=== PATIENT | female | born 1930 | race Hispanic/Latino ===

== ENCOUNTER → 2018-01-31 | Outpatient (CLI) | payer OTHER | LOC: RAD 11:03 | PROVIDERS: ATTEND Family Medicine | DX: M17.0 Bilateral primary osteoarthritis of knee (principal) ==

== ENCOUNTER → 2018-10-31 | Outpatient (CLI) | payer MEDICARE, OTHER ==
[~2018-10-31] MED LIST: ACETAMINOPHEN325 M1 PO; CALTRATE-600 W1 EACH; FERROUS SULFAT325 MG; FUROSEMIDE40 MG/4 ML; K DUR10 MEQ; MELOXICAM15 MG; NEXIUM40 MG; OSTEO BI-FLEX1 EAC2; TRAZODONE HCL50 MG
--- NOTE | 2018-10-31 14:50 | Diagnostic Imaging Report ---
EXAMINATION: PA and lateral views of the chest. COMPARISON: None CLINICAL HISTORY: Dyspnea DISCUSSION: Lines/tubes: None. Lungs: Low lung volume with elevation of the right hemidiaphragm. Right lung base atelectasis. Pleura: No pleural effusion or pneumothorax. Heart and mediastinum: The cardiomediastinal silhouette is normal. Bones and soft tissues: No acute bony abnormalities. IMPRESSION: No acute cardiopulmonary abnormalities. Signed by: Dr. Jason Horner M.D. on 10/31/2018 2:46 PM
== END ==
LOC: RAD 13:12
PROVIDERS: ATTEND Family Medicine
DX: R06.00 Dyspnea, unspecified (principal); J84.10 Pulmonary fibrosis, unspecified
CPT/HCPCS: 71046

== ENCOUNTER 2018-11-03 10:08 | Inpatient (IN) | payer MEDICARE, OTHER ==
[~2018-11-03] VITALS: Ht 160 cm; Wt 65.0 kg
[2018-11-03] MEDS: ALBUTEROL SULF 0.083% NEB SOLN 3 ML NEB NEB SCH ×3 (00:11→19:46)
--- OUTSIDE RECORDS SUMMARY | 2018-11-03 10:11 | XMS REPORT ---
Author Author [facility] Address Unknown Phone Unavailable Care Team Providers Care Infant Toddler Lead Teacher Name Role Phone DOMINGUEZ REICH Unavailable Unavailable Problems This patient has no known problems. Allergies, Adverse Reactions, Alerts This patient has no known allergies or adverse reactions. Medications This patient has no known medications. Results Test Description Test Time Test Comments Text Results Atomic Results Result Comments CHEST 2 VIEWS 2018-10-31 14:45:00 [place] [address] Patient Name: ERICKSON GAITAN MR #: [id number] : 1930 Age/Sex: 88/F Req #: [id number] Adm Physician: Ordered by: DAMIR LAM, DOMINGUEZ Proctor MD Report #: [id number] Location: [facility] Room/Bed: Procedure: [id number] DX/CHEST 2 VIEWS Exam Date: Exam Time: REPORT STATUS: Signed EXAMINATION: PA and lateral views of the chest. COMPARISON: None CLINICAL HISTORY: Dyspnea DISCUSSION: Lines/tubes: None. Lungs: Low lung volume with elevation of the right hemidiaphragm. Right lung base atelectasis. Pleura: No pleural effusion or pneumothorax. Heart and mediastinum: The cardiomediastinal silhouette is normal. Bones and soft tissues: No acute bony abnormalities. IMPRESSION: No acute cardiopulmonary abnormalities. Signed by: Dr. Austin Rebolledo M.D. on 10/31/2018 2:46 PM Dictated By: AUSTIN REBOLLEDO MD [id number] Transcribed By: DEVONTE on 10/31/18 1446 COPY TO: DOMINGUEZ REICH KNEE THREE VIEWS BILATERAL 2018-02-04 11:21:00 [place] [address] Patient Name: ERICKSON GAITAN MR #: [id number] : 1930 Age/Sex: 87/F Req #: [id number] Adm Physician: Ordered by: DOMINGUEZ REICH MD, MD Report #: [id number] Location: [facility] Room/Bed: Procedure: [id number] DX/KNEE THREE VIEWS BILATERAL Exam Date: 01/31/18 Exam Time: 1115 REPORT STATUS: Signed PROCEDURE: KNEE THREE VIEWS BILATERAL COMPARISON: None. INDICATIONS: BILATERAL KNEE PAIN FINDINGS: Diffuse osteopenia: There are bilateral moderate medial compartment predominant, tricompartmental degenerative changes with joint space narrowing and bony osteophyte formation. No evidence of acute fracture or malalignment. No evidence of joint effusion. Atherosclerotic vascular calcifications. 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 Diffuse osteopenia without acute osseous abnormality. Dictated by: ANSHU RAMESH M.D. on 02/04/2018 at 11:21 Electronically approved by: ANSHU RAMESH M.D. on 02/04/2018 at 11:21 Dictated By: ANSHU RAMESH MD 1121 Transcribed By: LARRY on 02/04/18 1121 COPY TO: DOMINGUEZ REICH
[2018-11-03 12:09] LABS: BASOPHILS # (AUTO) 0.1 (0.0-0.1); BASOPHILS % 0.5 % (0.0-1.0); EOSINOPHILS # (AUTO) 1.2 (0.0-0.4); EOSINOPHILS % 10.4 % (0.0-6.0); HEMATOCRIT 32.7 % (34.2-44.1); HEMOGLOBIN 10.9 g/dL (12.0-16.0); LYMPHOCYTES # (AUTO) 3.2 (1.0-3.2); LYMPHOCYTES % 28.9 % (18.0-39.1); MEAN CORPUSCULAR HEMOGLOBIN 31.3 pg (28-32); MEAN CORPUSCULAR HGB CONC 33.3 g/dL (31-35); MONOCYTES # (AUTO) 1.1 (0.2-0.8); MONOCYTES % 9.6 % (4.4-11.3); NEUTROPHILS # (AUTO) 5.6 (2.1-6.9); NEUTROPHILS % 50.3 % (38.7-80.0); PLATELET COUNT 346 x10e3/uL (140-360); RED BLOOD COUNT 3.48 x10e6/uL (3.6-5.1); RED CELL DISTRIBUTION WIDTH 13.1 % (11.7-14.4)
[2018-11-03 12:17] LABS: BILIRUBIN,URINE NEGATIVE (NEGATIVE); CLARITY,URINE SL CLOUDY (CLEAR); COLOR,URINE YELLOW (YELLOW); KETONES,URINE NEGATIVE (NEGATIVE); LEUKOCYTE ESTERASE ,URINE NEGATIVE (NEGATIVE); NITRITE,URINE NEGATIVE (NEGATIVE); PROTEIN,URINE DIPSTICK TRACE (NEGATIVE); URINE UROBILINOGEN 0.2 mg/dL (0.2 - 1)
[2018-11-03 12:19] LABS: INR 1.11; PROTHROMBIN TIME 14.8 seconds (11.9-14.5)
[2018-11-03 12:20] LABS: PARTIAL THROMBOPLASTIN TIME 30.5 seconds (23.8-35.5)
[2018-11-03 12:27] LABS: ALANINE AMINOTRANSFERASE 12 IU/L (0-55); ALBUMIN 3.5 g/dL (3.5-5.0); ALKALINE PHOSPHATASE 80 IU/L (40-150); ANION GAP 12.7 mmol/L (8-16); BLOOD UREA NITROGEN 19 mg/dL (7-26); BUN/CREATININE RATIO 21 (6-25); CALCIUM 10.3 mg/dL (8.4-10.2); CARBON DIOXIDE 23 mmol/L (22-29); CHLORIDE 108 mmol/L (98-107); CREATINE KINASE 41 IU/L (29-168); CREATININE, SERUM 0.89 mg/dL (0.57-1.11); EST GLOMERULAR FILTRATION RATE 60 ML/MIN (60-); GLUCOSE 97 mg/dL (74-118); POTASSIUM 3.7 mmol/L (3.5-5.1); SODIUM 140 mmol/L (136-145)
[2018-11-03] MEDS ORDERED: METHYLPREDNISOLONE SOD SUCC 125 MG/2ML VIAL IV ONE (13:00)
[2018-11-03] MEDS ORDERED: ALBUTEROL/IPRATROPIUM 3 ML NEB NEB ONE (13:00)
[2018-11-03 13:02] LABS: BACTERIA,URINE FEW /HPF; EPITHELIAL CELLS,URINE RARE /LPF; RBC,URINE 0-5 /HPF (0-5); WBC,URINE (MAN) 0-5 /HPF (0-5)
--- NOTE | 2018-11-03 13:28 | Diagnostic Imaging Report ---
Chest, 2 views, 11/03/2018. History: Shortness of breath. Comparison: 10/31/2018. Findings: The cardiomediastinal silhouette and pulmonary vasculature are within normal limits. There is persistent elevation of the right hemidiaphragm with adjacent right basilar linear opacities. There is no focal consolidation or pleural effusion. Advanced degenerative changes are present in the left shoulder. There is posttraumatic deformity of the proximal left humerus. There are no acute osseous or soft tissue abnormalities. Impression: No acute cardiopulmonary abnormality. Signed by: Bright Abraham on 11/03/2018 1:24 PM
[2018-11-03] MEDS: SODIUM CHLORIDE 0.9% 1000ML 1,000 ML IV SCH ×2 (14:20→22:20)
[2018-11-03] MEDS ORDERED: AZITHROMYCIN 500MG/SOD CHL 0.9% 250ML BAG IV SCH (14:30)
[2018-11-03] MEDS ORDERED: AZITHROMYCIN 500MG/NS 250 ML 250 ML IV SCH (14:45)
[2018-11-03 15:30] VITALS: BP 106/46
[2018-11-03 16:13] VITALS: BP 151/75
[2018-11-03] MEDS ORDERED: MELOXICAM15 MG (17:47)
[2018-11-03] MEDS ORDERED: OSTEO BI-FLEX1 EAC2 (17:47)
[2018-11-03] MEDS ORDERED: ACETAMINOPHEN325 M1 PO (17:47)
[2018-11-03] MEDS ORDERED: FERROUS SULFAT325 MG (17:47)
[2018-11-03] MEDS ORDERED: CALTRATE-600 W1 EACH (17:47)
[2018-11-03] MEDS ORDERED: TRAZODONE HCL50 MG (17:47)
[2018-11-03] MEDS ORDERED: FUROSEMIDE40 MG/4 ML (17:47)
[2018-11-03] MEDS ORDERED: NEXIUM40 MG (17:47)
[2018-11-03] MEDS ORDERED: K DUR10 MEQ (17:47)
[2018-11-03] MEDS: IPRATROPIUM BROMIDE 0.02% 2.5 ML NEB NEB SCH (19:46)
[2018-11-03 20:00] VITALS: BP 142/67
[2018-11-03] MEDS: METHYLPREDNISOLONE SOD SUCC 125 MG/2ML VIAL IV SCH (21:32)
[2018-11-03 22:20] VITALS: BP 151/75
[2018-11-04] VITALS (8 sets, daily range): BP systolic 121–180; BP diastolic 65–77
--- NOTE | 2018-11-04 00:08 | NUR ---
Tayla called for patient while taking vital signs. Patient was having coughing attacks. Upon entering the room patient stated she needs something for the cough. I informed her I would call the physician.
--- NOTE | 2018-11-04 00:09 | NUR ---
Spoke to Dr. Fernandez per patient request for cough medication. Order received Telson Melania 100mg PO Q8h PRN (coughing). Read back verified.
[2018-11-04] MEDS: IPRATROPIUM BROMIDE 0.02% 2.5 ML NEB NEB SCH ×5 (00:11→20:30)
[2018-11-04] MEDS: ALBUTEROL SULF 0.083% NEB SOLN 3 ML NEB NEB SCH ×2 (03:00→07:00)
[2018-11-04 05:14] LABS: BASOPHILS % 0.2 % (0.0-1.0); HEMOGLOBIN 10.3 g/dL (12.0-16.0); LYMPHOCYTES # (AUTO) 0.8 (1.0-3.2); LYMPHOCYTES % 17.8 % (18.0-39.1); MEAN CORPUSCULAR HEMOGLOBIN 30.8 pg (28-32); MEAN CORPUSCULAR HGB CONC 32.2 g/dL (31-35); MEAN CORPUSCULAR VOLUME 95.8 fL (81-99); MONOCYTES # (AUTO) 0.1 (0.2-0.8); MONOCYTES % 1.8 % (4.4-11.3); NEUTROPHILS # (AUTO) 3.5 (2.1-6.9); NEUTROPHILS % 79.7 % (38.7-80.0); PLATELET COUNT 314 x10e3/uL (140-360); RED BLOOD COUNT 3.34 x10e6/uL (3.6-5.1)
--- NOTE | 2018-11-04 05:15 | NUR ---
called for a breathing treatment. The therapist is on her way to give a treatment.
[2018-11-04 05:31] LABS: ANION GAP 13.3 mmol/L (8-16); BLOOD UREA NITROGEN 22 mg/dL (7-26); BUN/CREATININE RATIO 26 (6-25); CALCIUM 10.1 mg/dL (8.4-10.2); CARBON DIOXIDE 22 mmol/L (22-29); CHLORIDE 107 mmol/L (98-107); CREATININE, SERUM 0.85 mg/dL (0.57-1.11); EST GLOMERULAR FILTRATION RATE > 60 ML/MIN (60-); GLUCOSE 180 mg/dL (74-118); POTASSIUM 4.3 mmol/L (3.5-5.1); SODIUM 138 mmol/L (136-145)
[2018-11-04] MEDS: METHYLPREDNISOLONE SOD SUCC 125 MG/2ML VIAL IV SCH (05:43)
[2018-11-04 05:53] LABS: CREATINE KINASE MB 1.5 ng/mL (0-5.0)
[2018-11-04] MEDS: SODIUM CHLORIDE 0.9% 1000ML 1,000 ML IV SCH (06:20)
--- NOTE | 2018-11-04 07:01 | NUR ---
Walking rounds done and report received. Patient is awake and alertx3 in NAD. Patient stated cough is better this morning. Patient instructed to call for assistance as needed and verbalized understanding. Call valentine within reach.
--- NOTE | 2018-11-04 07:21 | NUR ---
report given to Danii ABREU, alert and oriented at time of rounds, IV intact. RN made aware that IV fluids were not given due to lungs sounds wet
[2018-11-04] MEDS ORDERED: ACETAMINOPHEN 325 MG TAB PO PRN (09:45)
[2018-11-04] MEDS ORDERED: ONDANSETRON HCL INJ 2MG/ML 2ML 2 MG/ML VIAL IV PRN (09:45)
--- NOTE | 2018-11-04 10:30 | NUR ---
Caregiver at the bedside.
[2018-11-04] MEDS: PANTOPRAZOLE SOD 40 MG TABEC PO SCH (11:04)
[2018-11-04] MEDS: AZITHROMYCIN 250 MG TAB PO SCH (11:05)
--- NOTE | 2018-11-04 12:23 | Diagnostic Imaging Report ---
EXAM: CT Chest WITH contrast INDICATION: Shortness of breath, history of pancreatic mass, query metastasis. COMPARISON: Chest radiograph and 2018. TECHNIQUE: Chest was scanned utilizing a multidetector helical scanner from the lung apex through the level of the adrenal glands after administration of IV contrast. Coronal and sagittal reformations were obtained. Routine protocol was performed. IV CONTRAST: 100 mL of Isovue 370 RADIATION DOSE: Total DLP: 434 mGy*cm Dose modulation, iterative reconstruction, and/or weight based adjustment of the mA/kV was utilized to reduce the radiation dose to as low as reasonably achievable. COMPLICATIONS: None FINDINGS: LINES/ TUBES: None. LUNGS AND AIRWAYS: The central airways are patent. Diffuse mild bronchial wall thickening. There is a 3 mm calcified granuloma in the right upper lobe on series 3, image 40. There is a 9 mm ground glass nodule in the right middle lobe on image 49. Patchy dependent atelectasis, most pronounced in the right lower lobe. Subpleural linear and somewhat non- opacity in the left upper lobe/lingula, as seen on series 3, image 54 and coronal image 27 likely represents atelectasis. PLEURA: The pleural spaces are clear. HEART AND MEDIASTINUM: The thyroid gland is normal. No mediastinal, hilar or axillary lymphadenopathy. No cardiomegaly or pericardial effusion. Scattered atherosclerotic changes within the thoracic aorta and coronary arteries. UPPER ABDOMEN: Limited contrast-enhanced views of the upper abdomen. Status post partial right hepatectomy. There is a 7 mm hypodensity in the right hepatic lobe, too small to characterize, but may represent a cyst. BONES: No acute osseous abnormality. No suspicious lytic or blastic lesions. SOFT TISSUES: Unremarkable. IMPRESSION: No specific evidence of intrathoracic metastatic disease. A 9 mm groundglass nodule in the right middle lobe, likely infectious or inflammatory. Follow-up chest CT is suggested in 6-12 months. Signed by: Dr. Philly Chaudhari MD on 11/04/2018 12:19 PM
[2018-11-04] MEDS: CLONIDINE HCL 0.1 MG TAB PO PRN (12:51)
--- NOTE | 2018-11-04 14:00 | NUR ---
Nishira at the bedside and update provided.
[2018-11-04] MEDS ORDERED: IOPAMIDOL 370 MG/ML 200 ML INFUS..BTL INJ ONE (15:27)
[2018-11-04] MEDS ORDERED: SODIUM CHLORIDE 0.9% 50ML 50 ML ONE (15:27)
[2018-11-04] MEDS: ACETAMINOPHEN 325 MG TAB PO SCH (16:56)
[2018-11-04] MEDS: LACTOBACILLUS ACIDOPHILUS CAPSULE PO SCH (16:56)
--- NOTE | 2018-11-04 19:05 | NUR ---
Report given to oncoming nurse.
[2018-11-04] MEDS: HEPARIN SOD (PORCINE) 5,000 UNIT/ML VIAL SC SCH (21:45)
[2018-11-04] MEDS: TRAZODONE HCL 50 MG TAB PO SCH (21:45)
[2018-11-05] VITALS (7 sets, daily range): BP systolic 123–149; BP diastolic 53–70
[2018-11-05] MEDS: IPRATROPIUM BROMIDE 0.02% 2.5 ML NEB NEB SCH ×7 (03:10→23:00)
--- NOTE | 2018-11-05 07:00 | NUR ---
Patient endorsed to next shift for continuity of care
[2018-11-05] MEDS ORDERED: NON-FORMULARY MEDICATION (Meloxicam 15 MG) SCH (09:00)
[2018-11-05] MEDS: PREDNISONE 20 MG TAB PO SCH (10:00)
[2018-11-05] MEDS: ACETAMINOPHEN 325 MG TAB PO SCH ×2 (10:00→16:53)
[2018-11-05] MEDS: LACTOBACILLUS ACIDOPHILUS CAPSULE PO SCH ×2 (10:00→16:53)
[2018-11-05] MEDS: PANTOPRAZOLE SOD 40 MG TABEC PO SCH (10:00)
[2018-11-05] MEDS: MELOXICAM 7.5 MG TAB PO SCH (10:00)
[2018-11-05] MEDS: HEPARIN SOD (PORCINE) 5,000 UNIT/ML VIAL SC SCH ×2 (10:00→22:30)
[2018-11-05] MEDS: AZITHROMYCIN 250 MG TAB PO SCH (11:48)
--- NOTE | 2018-11-05 15:53 | NUR ---
Spoke to Dr. Fernandez regarding DC plan, along with CM director. Pt is day 2 obs. Pt has hypoxia with unknown etiology. Per Dr. Fernandez, pt does not have COPD. CT scan inconclusive. Dr. Schwartz has been consulted - pending MD round. Home O2 eval in place. Per MD, keep obs for now. No criteria for inpatient at this time.
--- NOTE | 2018-11-05 19:22 | NUR ---
Bedside report and walking rounds complete. Pt resting in bed and in no apparent distress. All safety measures ensured, valentine alarm on and pt call valentine near. Pt encouraged to use call valentine for assistance.
--- NOTE | 2018-11-05 21:30 | NUR ---
Spoke to RT who stated pt to be on BiPAP but want sure of reason for BiPAP use. Called Dr. Schwartz for diagnosis for BiPAP and MD stated for SOB and respiratory distress when moving or ambulating. Doctor Of Osteopathy and RT state per protocol pt needs to be moved to IMCU/ICU for BiPAP use for respiratory distress. Dr. Schwartz ok'd pt to be moved per protocol. Pt assessed and has no complaints and no current respiratory distress.
[2018-11-05] MEDS: PIPER-TAZ 3.375 GM 50 ML IV SCH (22:28)
[2018-11-05] MEDS: TRAZODONE HCL 50 MG TAB PO SCH (22:28)
--- NOTE | 2018-11-05 23:55 | NUR ---
RECEIVED PT IN BED AOX3 .RESPIRATIONS ARE EVEN AND UNLABORED .DENIES PAIN TELE SHOWS SR.SKIN WARM AND DRY TO TOUCH .CALL LIGHT WITH IN REACH .CONTINUE TO MONITOR
--- NOTE | 2018-11-05 23:58 | NUR ---
Report given to LOIS Miller and pt transferred to room 198.
[2018-11-06] VITALS (8 sets, daily range): BP systolic 140–186; BP diastolic 51–79
[2018-11-06] MEDS: PIPER-TAZ 3.375 GM 50 ML IV SCH ×4 (03:00→22:10)
[2018-11-06] MEDS: IPRATROPIUM BROMIDE 0.02% 2.5 ML NEB NEB SCH ×6 (03:00→23:30)
[2018-11-06] MEDS ORDERED: SODIUM CHLORIDE 0.9% 250ML 250 ML ONE (03:10)
--- NOTE | 2018-11-06 03:19 | Consultation ---
DATE OF CONSULTATION: 11/05/2018 Pulmonary Medicine Consult REFERRING PHYSICIAN: Dr. Jason Fernandez. PRIMARY CARE DOCTOR: Dr. Kishan Koenig. HISTORY: Ms. Condon is a pleasant 88-year-old female with shortness of breath. The patient with baseline functionality, where she can walk for one-half of [employer] or [employer] store limited by dyspnea. She uses a walker at the store. At home, she uses a cane. The patient denies any history of asthma. Some mild GERD. Allergies, lifelong, but mild and she only takes nasal sprays intermittently for it. The patient states she takes an inhaler, but does not know what it is called. For the last 2 weeks, the patient with progressive dyspnea. Dyspnea is severe. The patient has to sit up on many occasions, but when she is rested, she can lay down as low as 45 degrees elevation. The patient had foot swelling, and recently her Lasix was increased. Due to extreme symptoms, she is brought to emergency room. CT chest with contrast performed, which demonstrated a 3 mm granuloma of right upper lobe, 9 mm ground-glass nodule at right middle lobe, right basilar atelectasis versus pneumonia with right hemidiaphragm elevation at least half of the right hemithorax was obliterated due to this elevation. No evidence of PE on this contrast study. The patient with oxygen saturation of 94% at rest and it goes to 92% on walking. She is having some mild green secretions, but most of her issues from coughing are present. The patient was found to be worsening. PAST MEDICAL HISTORY: Hypertension, pancreatic mass, reportedly stable and benign per my unofficial sources, hyperlipidemia, allergies, and mild GERD. MEDICATIONS: Medication list reviewed per the chart record. ALLERGIES: NO KNOWN DRUG ALLERGIES. SOCIAL HISTORY: No smoking. No drinking. No drugs. The patient grew up in [place], [place] for first 10 years of her life and was exposed to biofuels in her house. After father , she moved to [place] for most of her life and for the last 3 years as in [place] with her niece. She has no children and one brother who . She is not . FAMILY HISTORY: Noncontributory. REVIEW OF SYSTEMS: GENERAL: No weight changes. OPHTHALMOLOGIC: No double vision. ENT: No significant loss of control noted in swallowing. ENDOCRINE: No thyroid disease known. IMMUNOLOGIC: She was told long time ago she may have lupus, but then she was told she probably did not. PULMONARY: No hemoptysis. CARDIAC: No heart attack. GI: No constipation. : No blood in urine. INTEGUMENT: No rash. NEUROLOGIC: No seizures. DERMATOLOGIC: No rash. OBJECTIVE: VITAL SIGNS: Currently afebrile, vital signs stable, reviewed per the chart record. GENERAL: In no acute distress, alert and calm, but she has a moderately increased work of breathing at rest and she has trouble speaking two sentences together. She claims she is having some shortness of breath when sitting at a 45 degree angle lying down in bed. She cannot lie down flatter than that. HEENT: Normocephalic and atraumatic. NECK: Supple. Throat midline. LUNGS: Bilateral air entry, significantly decreased breath sounds at the right side. No luis felipe wheezes, no rhonchi. CARDIOVASCULAR: S1, S2. No murmurs, rubs, or gallops. ABDOMEN: Soft and nontender. EXTREMITIES: No clubbing, no cyanosis. There is 1+ edema of the legs. INTEGUMENT: No rash. No purpura. LABORATORY DATA: 4.3 potassium, 22 BUN, 0.9 creatinine. 4.3 white count, 37 hematocrit, and 314 platelets. IMPRESSION AND PLAN: 1. Shortness of breath, significant. 2. Hypoxemia, mild to moderate. 3. Significant right hemidiaphragm elevation, under evaluation. 4. Right lower lobe compressive atelectasis versus pneumonia, possibly postobstructive. 5. Possible central airways obstruction situated around the diaphragm. 6. Leg edema, mild. 7. 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 8. History of biofuel in first 10 years of life. 9. Chronic allergies, mild. 10. Mild gastroesophageal reflux disease. 11. Baseline debility/weakness, decreased exertional capacity. 12. History of hyperlipidemia, hypertension, mild anemia, pancreatic stable lesion per report. 13. Lung nodule, right 9 mm ground-glass. Very complex patient and definitely her shortness of breath is significant. I recommend full continuation of antibiotics for community-acquired versus postobstructive pneumonia. Check echo to assess the amount of strain the heart and lungs are in. The patient requires full PFTs, although while this can be done as outpatient, we need initial spirometry and neuromuscular assessment. It is reasonable for Sniff testing of lungs. Check ultrasound legs, given the edema. Check thyroid and give vitamin for metabolic issues. Screen some connective tissue diseases, although I do not see any high reason to suspect connective tissue disease, although she was told a long time ago that she may have lupus. Given BiPAP right now for her refractory dyspnea. ENT consult to assess the upper airway, although I do not hear any luis felipe stridor. The patient's symptoms are out of proportion to the x-ray finding. Incentive spirometry and aggressive physical therapy are reasonable. If no quick answers are found, we need to consider V/Q testing for bronchoscopy to directly visualize the airways. Thank you very much, Dr. Fernandez and Dr. Koenig for allowing me a chance to participate in care of Ms. Yani Condon. Do not hesitate to contact me if I can help in any way. MD PAULINA Romo/ANNMARIE /[id number]
[2018-11-06] MEDS: BENZONATATE 100 MG CAP PO PRN ×2 (06:29→17:24)
[2018-11-06 06:56] LABS: ABG PCO2 42 mmHg (41-51)
[2018-11-06 06:57] LABS: ABG HCO3 26 mmol/L (23-28); ABG PO2 93 mmHg (80-105)
--- NOTE | 2018-11-06 07:08 | NUR ---
REPORT GIVEN TO THE ONCOMING NURSE
[2018-11-06] MEDS: PANTOPRAZOLE SOD 40 MG TABEC PO SCH (09:07)
[2018-11-06] MEDS: AZITHROMYCIN 250 MG TAB PO SCH (09:08)
[2018-11-06] MEDS: LACTOBACILLUS ACIDOPHILUS CAPSULE PO SCH ×2 (09:08→17:32)
[2018-11-06] MEDS: MELOXICAM 7.5 MG TAB PO SCH (09:08)
[2018-11-06] MEDS: PREDNISONE 20 MG TAB PO SCH (09:08)
[2018-11-06] MEDS: MULTIVITAMINS/MINERALS TAB PO SCH (09:08)
[2018-11-06] MEDS: ACETAMINOPHEN 325 MG TAB PO SCH ×2 (09:15→17:26)
[2018-11-06] MEDS: HEPARIN SOD (PORCINE) 5,000 UNIT/ML VIAL SC SCH ×2 (09:26→22:10)
--- NOTE | 2018-11-06 12:00 | NUR ---
Dr. Monique Oconnell rounding for Dr. Hanna Daly, I asked urology per Dr. Grayson Rucker, if patient Rinaldi d/c received orders not to remove Rinaldi.
--- NOTE | 2018-11-06 13:17 | NUR ---
Pulmonary Medicine Consult DATE OF ENCOUNTER: 11/06/2018 SUBJECTIVE: patient was upgraded to IMCU for shortness of breath. the SOB is mildly better today. BiPAP at standby. Patient on supplemental oxygen. She was able to walk today. REVIEW OF SYSTEMS: GENERAL: No weight changes. INTEGUMENT: No rash. OBJECTIVE: VITAL SIGNS: vital signs stable, reviewed per the chart GENERAL: NAD, calm HEENT: Normocephalic, atraumatic. NECK: Supple. Throat midline. LUNGS: Bilateral air entry, decreased breath sounds at the right side. No luis felipe wheezes, rare rhonchi. CARDIOVASCULAR: S1, S2. No murmurs, rubs, or gallops. ABDOMEN: Soft and nontender. EXTREMITIES: No clubbing, no cyanosis. 1+ edema legs. INTEGUMENT: No rash. No purpura. LABORATORY DATA: 7. IMPRESSION AND PLAN: 1. Shortness of breath, significant. 2. Hypoxemia, mild to moderate. 3. Significant right hemidiaphragm elevation, under evaluation. 4. RLL compressive atelectasis versus pneumonia, possibly postobstructive. 5. Possible central airways obstruction situated around the diaphragm. 6. Leg edema, mild. 7. 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 8. History of biofuel exposure in first 10 years of life. 9. Chronic allergies, mild. 10. Mild gastroesophageal reflux disease. 11. Baseline debility/weakness, decreased exertional capacity. 12. History of hyperlipidemia, hypertension, mild anemia, pancreatic stable lesion per report. 13. Lung nodule, right 9 mm ground-glass. Continue abx for possible pneumonia. Patient does feel better Follow echo Patient needs a trial of BiPAP. If the symptoms improve, we will forgo bronchoscopy. Else consider bronchoscopy-- issue with bronchoscopy is that it i s mainly diagnostic as airway stenting is expected to be problematic in most cases therefore the mainstay treatment is still bipap, lung expansion, weight loss, and cardiopulmonary conditioning. Check spirometry and neuromuscular assessment. ENT consult. Consider future Sniff testing Follow up ultrasound legs, given the edema. TSH normal Give vitamins for metabolic issues. Follow up screening for some connective tissue diseases, given that she was told a long time ago that she may have lupus. Incentive spirometry and aggressive physical therapy are reasonable. If no quick answers are found, we need to consider V/Q testing or bronchoscopy to directly visualize the airways. Thank you very much, Dr. Fernandez and Dr. Koenig for allowing me a chance to participate in care of . Yani Condon. Do not hesitate to contact me if I can help in any way.
[2018-11-06] MEDS: CLONIDINE HCL 0.1 MG TAB PO PRN (17:43)
[2018-11-06] MEDS: SALINE 0.65% NAS SOLN 1 SPRAY BTL SCH ×2 (19:21→22:00)
[2018-11-06] MEDS ORDERED: IPRATROPIUM BROMIDE 0.06% 42 MCG NASPR NS SCH (21:00)
--- NOTE | 2018-11-06 21:05 | NUR ---
patient is in the BIPAP since almost 2 hrs ago, sleeping and no distress noted at this time. Sat O2 is 100 % RR is 14.
[2018-11-06] MEDS: TRAZODONE HCL 50 MG TAB PO SCH (22:10)
--- NOTE | 2018-11-06 23:14 | Consultation ---
DATE OF CONSULTATION: 11/06/2018 Hospital Consultation I was kindly asked to see this 88-year-old woman for evaluation of nasal obstruction and possible upper airway obstruction. The patient presented with a history of progressive shortness of breath and was subsequently found to have right lower lobe compressive atelectasis versus pneumonia. She was begun on medical therapy and has improved significantly. She has a lifelong history of excessively runny nose. She has been treated with topical nasal steroids without significant improvement in the past. There is no seasonal variation of her symptoms. She also reports right-sided nasal airway obstruction present for many years. There has been no recent changes in her voice. However, the family does report that she seems to have difficulty breathing in her sleep. Her history of present illness past medical history, and past surgical history were reviewed in detail in the chart. On examination, there was excess cerumen present bilaterally. The visualized portion of the tympanic membranes was unremarkable. Intranasal examination showed a marked nasal septal deviation to the right with greater than 90% occlusion of the nasal airway. There was clear secretions in the nasal cavity and no significant mucosal abnormalities were noted. Intraoral examination was unremarkable. There was symmetric elevation of the soft palate and a moderate postnasal drainage. There was no palpable cervical adenopathy. On fiberoptic diagnostic rhinoscopy, there was compression of the right middle turbinate and compression of the right ostiomeatal complex, but no active infection was identified. There were clear secretions noted within the nasal cavity. The left ostiomeatal complex was unremarkable and fiberoptic laryngoscopy showed normal vocal cord motion. There were no masses. There was no clinical laryngeal obstruction. ASSESSMENT: 1. No evidence of laryngeal abnormalities to contribute to the dyspnea. 2. Nasal septal deviation. 3. Vasomotor rhinitis. PLAN: 1. Spicer nasal spray two puffs each side of nose q.4 hours, while awake. 2. Ipratropium bromide nasal sprays t.i.d. Thank you very much. MD ANNAMARIE DaughertyC/MODL /[id number]
[2018-11-07] VITALS (7 sets, daily range): BP systolic 131–168; BP diastolic 50–71
[2018-11-07] MEDS: IPRATROPIUM BROMIDE 0.02% 2.5 ML NEB NEB SCH ×3 (03:15→15:14)
[2018-11-07] MEDS: PIPER-TAZ 3.375 GM 50 ML IV SCH ×4 (03:18→21:52)
--- NOTE | 2018-11-07 05:36 | NUR ---
patient is on BIPAP most of the shift, stable vital signs, no distress noted.
[2018-11-07] MEDS: SALINE 0.65% NAS SOLN 1 SPRAY BTL SCH ×5 (05:59→22:00)
[2018-11-07] MEDS: PANTOPRAZOLE SOD 40 MG TABEC PO SCH (08:19)
[2018-11-07] MEDS: PREDNISONE 20 MG TAB PO SCH (09:24)
[2018-11-07] MEDS: MELOXICAM 7.5 MG TAB PO SCH (09:24)
[2018-11-07] MEDS: LACTOBACILLUS ACIDOPHILUS CAPSULE PO SCH ×2 (09:24→17:03)
[2018-11-07] MEDS: MULTIVITAMINS/MINERALS TAB PO SCH (09:24)
[2018-11-07] MEDS: AZITHROMYCIN 250 MG TAB PO SCH (09:25)
[2018-11-07] MEDS: ACETAMINOPHEN 325 MG TAB PO SCH ×3 (09:25→17:03)
[2018-11-07] MEDS: HEPARIN SOD (PORCINE) 5,000 UNIT/ML VIAL SC SCH ×2 (09:26→21:52)
--- NOTE | 2018-11-07 12:43 | NUR ---
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 no laryngeal abnormalities. TE 60% LVEf, rvsp 20 US legs venous no dvt REVIEW OF SYSTEMS: no headaches, no double vision OBJECTIVE: VITAL SIGNS: vital signs stable, reviewed per the chart GENERAL: NAD, calm HEENT: Normocephalic, atraumatic. NECK: Supple. Throat midline. LUNGS: Bilateral air entry, decreased breath sounds at the right side. No wheezes CARDIOVASCULAR: S1, S2. No murmurs, rubs, or gallops. ABDOMEN: Soft and nontender. EXTREMITIES: No clubbing, no cyanosis. trace edema INTEGUMENT: No rash. No purpura. LABORATORY DATA: 11/07/18 fev1 0.59 L, 35%. fvc 0.66 L, 29%. normal ratio. IMPRESSION AND PLAN: 1. Shortness of breath, significant. Better 2. Hypoxemia, mild to moderate. 3. Significant right hemidiaphragm elevation, under evaluation. 4. RLL pneumonia, possibly postobstructive. 5. Possible central airways (RLL) obstruction situated above the diaphragm. 6. Leg edema, mild. 7. 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 8. History of biofuel exposure in first 10 years of life. 9. Chronic allergies, mild. 10. Mild gastroesophageal reflux disease. 11. Baseline debility/weakness, decreased exertional capacity. 12. History of hyperlipidemia, hypertension, mild anemia, pancreatic stable lesion per report. 13. Lung nodule, right 9 mm ground-glass. Continue abx for pneumonia. Bronchial hygiene, expectoration Continue sleep NIV +/- rescue NIV. With large improvement, we will forgo bronchoscopy as not likely to benefit. --UNFORTUNATELY, THE PREVIOUS ABG DID NOT EASILY QUALIFY for home NIV. She may need expedited sleep studies for JUNIOR / hypoventilation PAP therapy at home. finish neuromuscular assessment with NIF/AIDE today, d/w RT Consider future Sniff testing TSH normal Give vitamins for metabolic issues. Follow up screening for some connective tissue diseases, given that she was told a long time ago that she may have lupus. Incentive spirometry and aggressive physical therapy are reasonable. Thank you very much, Dr. Fernandez and Dr. Koenig for allowing me a chance to participate in care of Yani Condon. Do not hesitate to contact me if I can help in any way.
--- NOTE | 2018-11-07 15:38 | NUR ---
patient transferred to floor. report called. all personal belongings with patient. daniel salvador with no distress.
--- NOTE | 2018-11-07 15:45 | NUR ---
PATIENT ARRIVED ON THE UNIT AT 1535 PER WHEELCHAIR FROM ROOM 198. PATIENT IS IN STABLE CONDITION WITH NO S/S OF RESPIRATORY DISTRESS. PATIENT DENIES PAIN. O2 APPLIED AT 2L NC. BED ALARM ON. CALL LIGHT IS WITHIN REACH, PATIENT INSTRUCTED TO CALL FOR ASSISTANCE NEEDED.
--- NOTE | 2018-11-07 19:20 | NUR ---
PATIENT IS IN STABLE CONDITION WITH NO S/S OF RESPIRATORY DISTRESS. PATIENT DENIES PAIN. BED ALARM ON. CALL LIGHT IS WITHIN REACH, PATIENT INSTRUCTED TO CALL FOR ASSISTANCE NEEDED. BEDSIDE SHIFT REPORT GIVEN TO ONCOMING NURSE.
[2018-11-07] MEDS ORDERED: SODIUM CHLORIDE 0.9% 50ML 50 ML ONE (21:29)
--- NOTE | 2018-11-07 21:40 | NUR ---
ASSISTED PATIENT TO THE RESTROOM AND SHE'S NOW BACK IN BED. NO RESPIRATORY DISTRESS OBSERVED, SHE DENIES PAIN. BED ALARM ON, CALL LIGHT WITHIN EASY REACH AND SHE'S INSTRUCTED TO CALL FOR ASSISTANCE NEEDED.
[2018-11-07] MEDS: TRAZODONE HCL 50 MG TAB PO SCH (21:52)
[2018-11-08] VITALS (8 sets, daily range): BP systolic 136–162; BP diastolic 65–68
--- NOTE | 2018-11-08 03:40 | NUR ---
PATIENT IS SOUNDLY ASLEEP, SHE'S EASY TO AROUSE. NO RESPIRATORY DISTRESS OBSERVED, SHE DENIES PAIN. CALL LIGHT WITHIN EASY REACH, BED ALARM ON.
[2018-11-08] MEDS: PIPER-TAZ 3.375 GM 50 ML IV SCH ×4 (03:46→22:40)
[2018-11-08] MEDS: SALINE 0.65% NAS SOLN 1 SPRAY BTL SCH ×5 (06:00→22:40)
--- NOTE | 2018-11-08 07:20 | NUR ---
PATIENT IS AWAKE, ALERT, AND IN STABLE CONDITION WITH NO S/S OF RESPIRATORY DISTRESS. PATIENT DENIES PAIN. 02 APPLIED. BED ALARM ON. CALL LIGHT IS WITHIN REACH, PATIENT INSTRUCTED TO CALL FOR ASSISTANCE NEEDED.
[2018-11-08] MEDS: IPRATROPIUM BROMIDE 0.02% 2.5 ML NEB NEB SCH ×5 (07:50→22:25)
[2018-11-08] MEDS: MULTIVITAMINS/MINERALS TAB PO SCH (08:46)
[2018-11-08] MEDS: MELOXICAM 7.5 MG TAB PO SCH (08:46)
[2018-11-08] MEDS: LACTOBACILLUS ACIDOPHILUS CAPSULE PO SCH ×2 (08:46→16:37)
[2018-11-08] MEDS: PREDNISONE 20 MG TAB PO SCH (08:46)
[2018-11-08] MEDS: PANTOPRAZOLE SOD 40 MG TABEC PO SCH (08:46)
[2018-11-08] MEDS: ACETAMINOPHEN 325 MG TAB PO SCH ×2 (08:47→16:38)
[2018-11-08] MEDS: AZITHROMYCIN 250 MG TAB PO SCH (08:47)
[2018-11-08] MEDS: HEPARIN SOD (PORCINE) 5,000 UNIT/ML VIAL SC SCH ×2 (08:47→21:07)
--- NOTE | 2018-11-08 18:25 | NUR ---
Pulmonary Medicine DATE OF ENCOUNTER: 11/08/2018 SUBJECTIVE: off bipap now she states she prefers bipap for sleep now more phlegm being expectorated she says she didnt walk today REVIEW OF SYSTEMS: no headaches, no double vision OBJECTIVE: VITAL SIGNS: vital signs stable, reviewed per the chart GENERAL: NAD, calm HEENT: Normocephalic, atraumatic. NECK: Supple. Throat midline. LUNGS: Bilateral air entry, decreased breath sounds at the right side, No wheezes CARDIOVASCULAR: S1, S2. No murmurs, rubs, or gallops. ABDOMEN: Soft and nontender. EXTREMITIES: No clubbing, no cyanosis. trace edema INTEGUMENT: No rash. No purpura. LABORATORY DATA: 4.3 k, .9 cr. 4.3 wbc, 32 hct. 314 plt. 11/07/18 fev1 0.59 L, 35%. fvc 0.66 L, 29%. normal ratio. TTE 60% LVEf, rvsp 20 US legs venous no dvt IMPRESSION AND PLAN: 1. Shortness of breath, significant. Better 2. Hypoxemia, mild to moderate. 3. Significant right hemidiaphragm elevation, under evaluation. 4. RLL pneumonia, possibly postobstructive. 5. Possible central airways (RLL) obstruction situated above the diaphragm. 6. Leg edema, mild. 7. 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 8. History of biofuel exposure in first 10 years of life. 9. Chronic allergies, mild. 10. Mild gastroesophageal reflux disease. 11. Baseline debility/weakness, decreased exertional capacity. 12. History of hyperlipidemia, hypertension, mild anemia, pancreatic stable lesion per report. 13. Lung nodule, right 9 mm ground-glass. 14. obstructive sleep apnea vs hypoventilation Continue abx for pneumonia. Bronchial hygiene, expectoration Continue sleep BIPAP. --UNFORTUNATELY, THE PREVIOUS ABG DID NOT EASILY QUALIFY for home NIV. She may need expedited sleep studies for JUNIOR / hypoventilation PAP therapy at home-- i will try to order via [facility] sleep lab. Consider future Sniff testing TSH normal Give vitamins for metabolic issues. Follow up screening for some connective tissue diseases, given that she was told a long time ago that she may have lupus. Incentive spirometry and aggressive physical therapy are reasonable. Thank you very much, Dr. Fenrandez and Dr. Koenig for allowing me a chance to participate in care of Ms. Yani Condon. Do not hesitate to contact me if I can help in any way.
[2018-11-08] MEDS ORDERED: SYMBICORT 80-10.2 GM INH (18:32)
[2018-11-08] MEDS ORDERED: AUGMENTIN 875-1 EACH PO (18:32)
[2018-11-08] MEDS ORDERED: PROAIR HFA INH8.5 GM IH (18:32)
[2018-11-08] MEDS ORDERED: PREDNISONE10 MG PO (18:32)
--- NOTE | 2018-11-08 19:20 | NUR ---
PATIENT IS SITITNG UP IN THE CHAIR AND IS RECEIVING A BREATHING TREATMENT. PATIENT REMAINS IN STABLE CONDITION WITH NO S/S OF RESPIRATORY DISTRESS. NO PAIN VOICED. CALL LIGHT IS WITHIN REACH, PATIENT INSTRUCTED TO CALL FOR ASSISTANCE NEEDED. BEDSIDE SHIFT REPORT GIVEN TO ONCOMING NURSE.
[2018-11-08] MEDS: TRAZODONE HCL 50 MG TAB PO SCH (21:06)
--- NOTE | 2018-11-08 21:16 | NUR ---
PATIENT ASSISTED WITH ADLS, BED ALARM ON, CALL LIGHT WITHIN EASY REACH AND SHE'S INSTRUCTED TO CALL FOR ASSISTANCE NEEDED.
--- NOTE | 2018-11-09 00:19 | NUR ---
PATIENT IS ASLEEP WITH BI-PAP ON, NO RESPIRATORY DISTRESS OBSERVED, SHE'S EASY TO AROUSE. BED ALARM ON, CALL LIGHT WITHIN EASY REACH.
[2018-11-09 00:42] VITALS: BP 152/68
[2018-11-09] MEDS: IPRATROPIUM BROMIDE 0.02% 2.5 ML NEB NEB SCH ×3 (02:20→11:00)
[2018-11-09 05:19] VITALS: BP 139/78
--- NOTE | 2018-11-09 05:50 | NUR ---
PATIENT ASSISTED TO THE RESTROOM, SHE'S NOW BACK IN BED WITHOUT RESPIRATORY DISTRESS. SHE DENIES PAIN, IV ANTIBIOTIC INFUSING ORDERED. CALL LIGHT WITHIN EASY REACH, SHE'S INSTRUCTED TO CALL FOR ASSISTANCE NEEDED.
[2018-11-09] MEDS: SALINE 0.65% NAS SOLN 1 SPRAY BTL SCH ×3 (06:00→13:28)
[2018-11-09] MEDS: PIPER-TAZ 3.375 GM 50 ML IV SCH ×2 (06:00→13:28)
--- NOTE | 2018-11-09 07:10 | NUR ---
PATIENT IS IN STABLE CONDITION WITH NO S/S OF RESPIRATORY DISTRESS. NO PAIN VOICED. PATIENT ON ROOM AIR. BED ALARM ON. THE CALL LIGHT IS WITHIN REACH OF PATIENT- PATIENT INSTRUCTED TO CALL FOR ASSISTANCE NEEDED.
--- NOTE | 2018-11-09 07:12 | Diagnostic Imaging Report ---
Examination: Single AP view of the chest. COMPARISON: None. INDICATION: Pneumonia DISCUSSION: Lines/tubes: None. Lungs: Elevated right hemidiaphragm with left lung base atelectasis. Pleura: No pleural effusion or pneumothorax. Heart and mediastinum: The heart and the mediastinum are unremarkable. Bones and soft tissues: No acute bony abnormalities. IMPRESSION: 1. Stable elevated right hemidiaphragm with left lung base atelectasis. Signed by: Dr. Jason Horner M.D. on 11/09/2018 7:08 AM
[2018-11-09 07:45] VITALS: BP 159/68
[2018-11-09 08:02] VITALS: BP 159/68
[2018-11-09] MEDS: AZITHROMYCIN 250 MG TAB PO SCH (08:25)
[2018-11-09] MEDS: MULTIVITAMINS/MINERALS TAB PO SCH (08:26)
[2018-11-09] MEDS: MELOXICAM 7.5 MG TAB PO SCH (08:26)
[2018-11-09] MEDS: PANTOPRAZOLE SOD 40 MG TABEC PO SCH (08:26)
[2018-11-09] MEDS: LACTOBACILLUS ACIDOPHILUS CAPSULE PO SCH (08:26)
[2018-11-09] MEDS: HEPARIN SOD (PORCINE) 5,000 UNIT/ML VIAL SC SCH (08:26)
[2018-11-09] MEDS: ACETAMINOPHEN 325 MG TAB PO SCH (08:26)
[2018-11-09] MEDS ORDERED: PREDNISONE 20 MG TAB PO SCH (09:00)
[2018-11-09 11:50] VITALS: BP 143/66
--- NOTE | 2018-11-09 14:09 | NUR ---
Pulmonary Medicine DATE OF ENCOUNTER: 11/09/2018 SUBJECTIVE: she had poor bipap mask fit last night she didnt use the bipap 2 L/min by NC oxygen RA fio2 in day now REVIEW OF SYSTEMS: no headaches, no double vision OBJECTIVE: VITAL SIGNS: vital signs stable, reviewed per the chart GENERAL: NAD, calm HEENT: Normocephalic, atraumatic. NECK: Supple. Throat midline. LUNGS: Bilateral air entry, decreased breath sounds at the right side, No wheezes CARDIOVASCULAR: S1, S2. No murmurs, rubs, or gallops. ABDOMEN: Soft and nontender. EXTREMITIES: No clubbing, no cyanosis. trace edema INTEGUMENT: No rash. No purpura. LABORATORY DATA: no new updates 11/07/18 fev1 0.59 L, 35%. fvc 0.66 L, 29%. normal ratio. TTE 60% LVEf, rvsp 20 US legs venous no dvt IMPRESSION AND PLAN: 1. Shortness of breath, significant. Better 2. Hypoxemia, mild to moderate. 3. Significant right hemidiaphragm elevation, under evaluation. 4. RLL pneumonia, possibly postobstructive. 5. Possible central airways (RLL) obstruction situated above the diaphragm. 6. Leg edema, mild. 7. 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 8. History of biofuel exposure in first 10 years of life. 9. Chronic allergies, mild. 10. Mild gastroesophageal reflux disease. 11. Baseline debility/weakness, decreased exertional capacity. 12. History of hyperlipidemia, hypertension, mild anemia, pancreatic stable lesion per report. 13. Lung nodule, right 9 mm ground-glass. 14. obstructive sleep apnea vs hypoventilation Continue abx for pneumonia. Bronchial hygiene, expectoration Continue sleep BIPAP. --expedited outpatient sleep study, in lab due to hypoventilation/hypoxemia. Consider future Sniff testing TSH normal Give vitamins for metabolic issues. Follow up screening for some connective tissue diseases, given that she was told a long time ago that she may have lupus. Incentive spirometry Thank you very much, Dr. Fernandez and Dr. Koenig for allowing me a chance to participate in care of Ms. Yani Condon. Do not hesitate to contact me if I can help in any way.
--- NOTE | 2018-11-09 15:25 | NUR ---
RECEIVED DC ORDER FROM MD, PATIENT IS IN STABLE CONDITION. DENIES PAIN OR DISCOMFORT. IV LINE TO RIGHT AC DCD WITH TIP INTACT, PRESSURE APPLIED TO SITE, NO BLEEDING NOTED. DISCHARGE TEACHING PROVIDED TO PATIENT IN GRENADI[place], SHE VERBALIZED UNDERSTANDING, PATIENT REFUSED GRENADIAN COPY OF DISCHARGE PAPERWORK. DISCHARGE FOLDER WITH PATIENT'S DISCHARGE PAPERWORK AND PRESCRIPTIONS ON HAND. ALL PERSONAL ITEMS ON HAND. PATIENT ACCOMPANIED TO PRIVATE AUTO VIA WHEELCHAIR BY STAFF.
[2018-11-09] MEDS ORDERED: ENOXAPARIN SOD INJ 40 MG/0.4 ML SYR SC SCH (17:00)
--- NOTE | 2018-11-10 02:50 | Discharge Summary ---
PRIMARY CARE DOCTOR: Dr. Kishan Koenig. FINAL DIAGNOSIS: Pneumonia, present on admission. SECONDARY DIAGNOSIS: Arthritis. CONSULTANTS: 1. Dr. Schwartz, Pulmonology. 2. Dr. Barros, ENT. PROCEDURES/STUDIES PERFORMED: 1. Echocardiogram, which was benign. 2. Chest CT, nonspecific. 3. Bilateral lower extremities venous Dopplers, negative for DVT. 4. Fiber optic laryngoscope, which was benign. HISTORY: Per [facility] HOSPITAL COURSE: The patient was admitted, initially thought to be having pulmonary fibrosis or chronic respiratory failure. The workup was negative for pulmonary hypertension, negative for chronic venous thrombotic embolism and also negative for any upper airway disease. Finally with aggressive nebulizer treatment. The patient was finally able to start to cough up sputum. Briefly, the patient was on BiPAP as well to help open up her airway. The patient was getting IV antibiotics. Currently, the patient is doing much better. The patient is able to ambulate without oxygen. The patient will go home on Augmentin for 5 more days and also a steroid taper. She will also be getting Symbicort. The patient was seen and examined today. It took 32 minutes total to discharge this patient. CONDITION ON DISCHARGE: Improved. DISCHARGE MEDICATIONS: Please see medication reconciliation. The patient will follow up with her primary care doctor in 2 weeks. MD GILDARDO Smith/ANNMARIE /[id number] cc: Kishan Koenig
--- NOTE | 2018-11-13 04:00 | Pulmonary Function Test ---
DATE OF STUDY: 11/07/2018 REFERRING PHYSICIAN: Jimmie Fernandez MD SPIROMETRY: Spirometry demonstrates evidence of severe restriction as noted by FEV1 of 0.59 L or 35% predicted, FVC of 0.66 L or 29% predicted in the setting of normal FEV1/FVC ratio. On flow volume loops a narrow curve was noted consistent with restriction. NEUROMUSCULAR ASSESSMENT: Negative inspiratory force was -20 diameter at maximum and negative expiratory pressure was 30 cm at maximum. QUALITY: Decreased interpretation of spirometry. Efforts were from 2 to 3.5 seconds long. SEVERE RESTRICTION: Decreased maximal inspiratory and expiratory pressure may suggest neuromuscular insufficiency versus technique limitation. Clinical correlation is recommended and full pulmonary function testing may be considered if indicated and patient is better able to perform. Martir Schwartz MD GMN/MODL /[id number]
== END 2018-11-09 15:32 | disposition home or self-care (01) | DRG 193 ==
LOC: ER 10:08 → ERHOLD 14:20 → INTOOBSV 14:20 → MED/SURG2 15:45 → IMCU 11-06 00:19 → OBSVTOIN 11-06 09:24 → MED/SURG3 11-07 15:39
PROVIDERS: ADMIT Internal Medicine; ATTEND Internal Medicine
PROC: 0CJS8ZZ Inspection of Larynx, Via Natural or Artificial Opening Endoscopic (ICD-10-PCS; principal; 2018-11-06)
PROC: 5A09357 Assistance with Respiratory Ventilation, Less than 24 Consecutive Hours, Continuous Positive Airway Pressure (ICD-10-PCS; 2018-11-06)
DX: J18.9 Pneumonia, unspecified organism (principal); Q79.1 Other congenital malformations of diaphragm; J34.2 Deviated nasal septum; J30.0 Vasomotor rhinitis; K21.9 Gastro-esophageal reflux disease without esophagitis; I10 Essential (primary) hypertension; E78.5 Hyperlipidemia, unspecified; D64.9 Anemia, unspecified; K86.9 Disease of pancreas, unspecified; R09.02 Hypoxemia; R53.1 Weakness; R53.81 Other malaise; R06.03 Acute respiratory distress; R91.1 Solitary pulmonary nodule; M13.0 Polyarthritis, unspecified; Z91.09 Other allergy status, other than to drugs and biological substances
CPT/HCPCS: 36415; 71045; 71046; 71260; 80048; 80053; 81001; 82550; 82553; 82785; 82805; 83880; 84443; 84484; 85025; 85610; 85730; 86039; 86431; 87040; 87070; 87086; 87205; 93306; 93970; 94010; 94640; 94660; 96367; 96372; 99284; G0378; J0456; J1644; J2543; J2930; J7030; J7050; J7512; Q9967

== ENCOUNTER → 2019-01-28 | Outpatient (CLI) | payer MEDICARE, OTHER ==
[~2019-01-28] MED LIST changes: +AUGMENTIN 875-1 EACH PO; +PREDNISONE10 MG PO; +PROAIR HFA INH8.5 GM IH; +SYMBICORT 80-10.2 GM INH
--- NOTE | 2019-01-28 14:01 | Diagnostic Imaging Report ---
Exam: Left wrist 3 views History: Pain Comparison: None. Findings: No fracture or malalignment. 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 Impression: No acute osseous abnormality Signed by: Dr. Jason Horner M.D. on 01/28/2019 1:58 PM
== END ==
LOC: RAD 12:12
PROVIDERS: ATTEND Family Medicine
DX: M25.532 Pain in left wrist (principal)

== ENCOUNTER 2019-02-20 14:18 | Inpatient (IN) | payer MEDICARE, OTHER ==
[~2019-02-20] VITALS: Ht 160 cm; Wt 70.3 kg
[2019-02-20 16:08] LABS: BASOPHILS # (AUTO) 0.1 (0.0-0.1); BASOPHILS % 0.6 % (0.0-1.0); EOSINOPHILS # (AUTO) 0.6 (0.0-0.4); EOSINOPHILS % 4.2 % (0.0-6.0); HEMATOCRIT 33.3 % (34.2-44.1); LYMPHOCYTES # (AUTO) 0.6 (1.0-3.2); LYMPHOCYTES % 4.2 % (18.0-39.1); MEAN CORPUSCULAR HEMOGLOBIN 31.6 pg (28-32); MEAN CORPUSCULAR VOLUME 95.7 fL (81-99); MONOCYTES # (AUTO) 0.2 (0.2-0.8); MONOCYTES % 1.6 % (4.4-11.3); NEUTROPHILS # (AUTO) 12.8 (2.1-6.9); PLATELET COUNT 342 x10e3/uL (140-360); RED BLOOD COUNT 3.48 x10e6/uL (3.6-5.1)
[2019-02-20 16:17] LABS: INR 1.07; PARTIAL THROMBOPLASTIN TIME 31.3 seconds (23.8-35.5); PROTHROMBIN TIME 14.4 seconds (11.9-14.5)
[2019-02-20 16:27] LABS: ALBUMIN 3.7 g/dL (3.5-5.0); ALBUMIN/GLOBULIN RATIO 1.1 (0.8-2.0); ANION GAP 13.2 mmol/L (8-16); CALCIUM 10.7 mg/dL (8.4-10.2); CREATININE, SERUM 1.01 mg/dL (0.57-1.11); MAGNESIUM 2.2 MG/DL (1.3-2.1); POTASSIUM 4.2 mmol/L (3.5-5.1)
[2019-02-20 16:34] LABS: CREATINE KINASE MB 0.8 ng/mL (0-5.0)
--- NOTE | 2019-02-20 16:44 | Diagnostic Imaging Report ---
Chest, 2 views, 02/20/2019. History: Cough and congestion, shortness of breath. Comparison: 11/09/2018. Findings: The cardiomediastinal silhouette and pulmonary vasculature are prominent. There is persistent marked elevation of the right hemidiaphragm. Linear opacities are present in both lung bases. Degenerative changes are noted throughout the thoracic spine. There are no acute osseous or soft tissue abnormalities. Impression: Cardiomegaly, pulmonary vascular congestion, and bibasilar atelectasis with persistent elevation of the right hemidiaphragm. Signed by: Bright Abraham on 02/20/2019 4:41 PM
[2019-02-20] MEDS ORDERED: METHYLPREDNISOLONE SOD SUCC 125 MG/2ML VIAL IV ONE (17:00)
[2019-02-20] MEDS ORDERED: ALBUTEROL/IPRATROPIUM 3 ML NEB NEB ONE ×2 (17:00→18:00)
[2019-02-20 17:16] LABS: CLARITY,URINE SL CLOUDY (CLEAR); COLOR,URINE YELLOW (YELLOW); LEUKOCYTE ESTERASE ,URINE NEGATIVE (NEGATIVE); NITRITE,URINE NEGATIVE (NEGATIVE); PROTEIN,URINE DIPSTICK NEGATIVE (NEGATIVE); URINE UROBILINOGEN 0.2 mg/dL (0.2 - 1)
[2019-02-20 17:17] LABS: BILIRUBIN,URINE NEGATIVE (NEGATIVE); KETONES,URINE NEGATIVE (NEGATIVE)
[2019-02-20 17:31] LABS: BACTERIA,URINE MANY /HPF; HYALINE CASTS 0-1 (0-1); WBC,URINE (MAN) 0-5 /HPF (0-5)
[2019-02-20] MEDS ORDERED: ONDANSETRON HCL INJ 2MG/ML 2ML 2 MG/ML VIAL IV PRN (18:00)
[2019-02-20] MEDS: CEFTRIAXONE SOD 1 GM/NS 50 ML 50 ML IV SCH (18:06)
[2019-02-20] MEDS: IPRATROPIUM BROMIDE 0.02% 2.5 ML NEB NEB SCH ×2 (19:20→23:25)
[2019-02-20] MEDS: ALBUTEROL SULF 0.083% NEB SOLN 3 ML NEB NEB SCH ×2 (19:20→23:25)
[2019-02-20 21:04] VITALS: BP 159/67
[2019-02-20] MEDS ORDERED: SODIUM CHLORIDE 0.9% 500ML 500 ML ONE (21:29)
[2019-02-20] MEDS ORDERED: ACETAMINOPHEN 325 MG TAB PO PRN (21:30)
[2019-02-20] MEDS ORDERED: TRAZODONE HCL 50 MG TAB PO PRN (21:30)
[2019-02-20] MEDS: FAMOTIDINE 20 MG/2 ML VIAL IV SCH (21:43)
[2019-02-20] MEDS: METHYLPREDNISOLONE SOD SUCC 125 MG/2ML VIAL IV SCH (21:44)
[2019-02-20] MEDS: AZITHROMYCIN 500MG/NS 250 ML 250 ML IV SCH (21:46)
[2019-02-20 22:29] VITALS: BP 159/67
[2019-02-20] MEDS ORDERED: PNEUMOCOCCAL VACCINE POLYVALENT 23 MCG/0.5 ML VIAL IM SCH (22:29)
[2019-02-20] MEDS ORDERED: INFLUENZA VIRUS VAC SPLIT INJ 0.5 ML SYR IM SCH (22:29)
[2019-02-21] VITALS (8 sets, daily range): BP systolic 115–179; BP diastolic 54–74
[2019-02-21] MEDS: IPRATROPIUM BROMIDE 0.02% 2.5 ML NEB NEB SCH ×6 (03:35→23:45)
[2019-02-21] MEDS: ALBUTEROL SULF 0.083% NEB SOLN 3 ML NEB NEB SCH ×6 (03:35→23:45)
[2019-02-21] MEDS: METHYLPREDNISOLONE SOD SUCC 125 MG/2ML VIAL IV SCH (05:57)
[2019-02-21 06:07] LABS: BASOPHILS % 0.2 % (0.0-1.0); HEMATOCRIT 32.7 % (34.2-44.1); LYMPHOCYTES # (AUTO) 0.4 (1.0-3.2); LYMPHOCYTES % 8.8 % (18.0-39.1); MEAN CORPUSCULAR HEMOGLOBIN 31.8 pg (28-32); MEAN CORPUSCULAR HGB CONC 33.6 g/dL (31-35); MEAN CORPUSCULAR VOLUME 94.5 fL (81-99); MONOCYTES # (AUTO) 0.1 (0.2-0.8); MONOCYTES % 2.1 % (4.4-11.3); NEUTROPHILS # (AUTO) 4.2 (2.1-6.9); NEUTROPHILS % 88.5 % (38.7-80.0); PLATELET COUNT 325 x10e3/uL (140-360); RED BLOOD COUNT 3.46 x10e6/uL (3.6-5.1); RED CELL DISTRIBUTION WIDTH 13.9 % (11.7-14.4)
[2019-02-21 06:34] LABS: CREATINE KINASE MB 1.6 ng/mL (0-5.0)
[2019-02-21 06:38] LABS: ALBUMIN 3.5 g/dL (3.5-5.0); ALBUMIN/GLOBULIN RATIO 1.1 (0.8-2.0); ANION GAP 14.8 mmol/L (8-16); CALCIUM 10.2 mg/dL (8.4-10.2); CHOL/HDL RATIO 4.5 (3.0-3.6); CREATININE, SERUM 1.03 mg/dL (0.57-1.11); POTASSIUM 3.8 mmol/L (3.5-5.1)
--- NOTE | 2019-02-21 06:56 | NUR ---
BEDSIDE ROUNDING COMPLETE AT THIS TIME WITH LOIS BARRAZA. PT RESTING IN BED, BED ALARM IS ON AND CALL LIGHT IS IN REACH.
[2019-02-21 07:09] LABS: LYMPHOCYTES % (MANUAL) 8 % (19-48); MONOCYTES % (MANUAL) 1 % (3.4-9.0); NEUTROPHILS % (MANUAL) 91 % (40-74)
[2019-02-21 07:12] LABS: ANISOCYTOSIS SLIGHT; PLATELET ESTIMATE ADEQUATE; PLATELET MORPHOLOGY COMMENT NORMAL; RBC MORPHOLOGY COMMENT ABNORMAL
[2019-02-21] MEDS: FAMOTIDINE 20 MG/2 ML VIAL IV SCH (09:24)
[2019-02-21] MEDS ORDERED: PNEUMOCOCCAL VACCINE POLYVALENT 23 MCG/0.5 ML VIAL IM NR (10:00)
[2019-02-21 13:44] LABS: CREATINE KINASE MB 2.4 ng/mL (0-5.0)
--- NOTE | 2019-02-21 14:17 | NUR ---
Nutrition Screen Note RD Recommendation for Physician: Continue diet as ordered Plan of Care: RD following, monitoring for tolerance and adequacy Nutrition reason for involvement: Nutrition Risk Trigger - MST Primary Diagnose(s): PMH: COPD, HTN, GERD, hyperlipidemia Ht:63 in Wt144:lb BMI:25.57 kg/m2 IBW:115lb +/-10% RD Assessment: (02/21/2019) Chart reviewed. Labs and meds reviewed. Initial encounter with patient. Pt is reporting a good appetite/Po intake. Pt denies any difficulty chewing or swallowing nor has any N,V, D. Pt denies any wt changes. Pt not interested in a diet instruction and eats well at home. Current Diet: Cardiac Malnutrition Evaluation (02/21/2019) The patient does not meet criteria for a specified degree of malnutrition at this time. Will re-evaluate at follow-up as appropriate. Diet Education Needs Assessment: Diet education not indicated. Nutrition Care Level: Low Signed: Jaron Gooden RD, LD, [facility]
[2019-02-21] MEDS: SODIUM CHLORIDE 0.45% 1,000 ML IV SCH (14:40)
[2019-02-21] MEDS ORDERED: GUAIFENESIN 200 MG/10 ML UDC PO PRN (16:45)
--- NOTE | 2019-02-21 16:48 | NUR ---
RECEIVED CALL FROM RADIOLOGY,PATIENT'S DIAPHRAGM FLUOROSCOPY EXAM CAN NOT BE DONE UNTIL SATURDAY BECAUSE A RADIOLOGIST HAS TO DO IT.
[2019-02-21] MEDS: CEFTRIAXONE SOD 1 GM/NS 50 ML 50 ML IV SCH (17:13)
[2019-02-21] MEDS: LACTOBACILLUS ACIDOPHILUS CAPSULE PO SCH (17:14)
[2019-02-21] MEDS: AZITHROMYCIN 500MG/NS 250 ML 250 ML IV SCH (17:50)
--- NOTE | 2019-02-21 19:43 | Consultation ---
DATE OF CONSULTATION: 02/21/2019 Pulmonary Medicine Consult REFERRING PHYSICIAN: Dr. Jason Fernandez. PRIMARY CARE DOCTOR: Dr. Kishan Koenig. HISTORY OF PRESENT ILLNESS: Ms. Condon is a pleasant 88-year-old female with shortness of breath. The patient known to me from October 2018 hospitalization where she seemed to have hypoxemia, upper respiratory infection with pulmonary findings of significant right hemidiaphragm evaluation with compressive atelectasis. The patient had improvement on her own. As the patient rapidly improved, she was allowed to maintain her trajectory, but there was a history of some kind of pancreatic spot that was unknown to us exactly what it was. It was reportedly benign, however, per the patient's information. The patient presented to [facility] on February 20, 2019 with shortness of breath and coughing. Congestion is there for at least three weeks although the patient states it has been there for a month. The patient with feeling heavy tightness around her chest. Due to a pattern of worsening she came to emergency room. Chest x-ray was done, which shows possible venous congestion with bibasilar atelectasis and definite very high right hemidiaphragm. At this point, she was hospitalized and I am consulted. November 07, 2018 spirometry demonstrated FEV1 0.59 L or 35% predicted, FVC 0.66 L or 29% predicted with normal ratio. Negative inspiratory force, -20 cm and positive expiratory force was 30 cm. PAST MEDICAL HISTORY: Hypertension, pancreatic mass reportedly stable and benign per official sources, hyperlipidemia, allergies, and mild GERD, right hemidiaphragmatic elevation, chronic mild allergies, and mild GERD. MEDICATIONS: Medication list reviewed per the electronic record. Includes ProAir inhaler, Symbicort 80, and Nexium among other medications. ALLERGIES: NO KNOWN DRUG ALLERGIES. SOCIAL HISTORY: No smoking, no drinking, no drugs. The patient grew up in [place], [place] for first 10 years of her life and was exposed to biofuels in her house. Thereafter, she moved to [place] and is in [place] for the last four years. She has no children, but she had one brother who . She is not . FAMILY HISTORY: Noncontributory. REVIEW OF SYSTEMS: GENERAL: No weight changes. OPHTHALMOLOGIC: No floaters. ENDOCRINE: No known thyroid disease. PULMONARY: No hemoptysis. CARDIAC: No heart attack. GI: No constipation. : No blood in urine. Immunologic: Reportedly had been told she had lupus a long time ago, but then she was told she did not. INTEGUMENT: No rash. NEUROLOGIC: No stroke. DERMATOLOGIC: No rash. OBJECTIVE: VITAL SIGNS: Afebrile, vital signs noted and reviewed per the chart record. GENERAL: In no acute distress, alert and calm. HEENT: Normocephalic. Atraumatic. NECK: Supple. Throat midline. LUNGS: Bilateral air entry decreased bilaterally. No wheezes. CARDIOVASCULAR: S1, S2. No murmurs, rubs, or gallops. ABDOMEN: Soft, nontender. EXTREMITIES: No clubbing, no cyanosis. There is no edema. INTEGUMENT: No rash, no purpura. LABORATORY DATA: 3.8 potassium 27 BUN, 1.03 creatinine. 5 white count, 33 hematocrit, 325 platelets. IMPRESSION AND PLAN: 1. Abnormal chest radiography, possible fluid overload. 2. Previous echocardiogram was 60% LVEF, RVSP 20 estimated. BNP was 44. 3. Abnormal chest radiography, possible pneumonia. 4. Significantly elevated right hemidiaphragm. 5. 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 6. 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 7. Chronic allergies. 8. Mild gastroesophageal reflux disease. 9. Baseline debility and weakness. 10. Reported pancreatic stable mass in the past. 11. Hyperlipidemia. 12. Hypertension. 13. Lung nodule, small right 9 mm ground-glass opacity on previous CT. 14. Possible obstructive sleep apnea. 15. At this time, continue to treat the patient for the upper versus lower respiratory tract infection. Antibiotics. SNIFF test is reasonable although we will see if Radiology is able to perform. If SNIFF test is negative, needs consideration for bronchoscopy. Consideration to repeat CT chest as well as reviewing abdomen pelvic CT findings is reasonable-I am told the CT scan was already ordered of her abdomen. Steroids. Light bronchodilators. Mobilize the patient with therapy. Supplement oxygen until better. Thank you very much, Dr. Jason Fernandez and Dr. Koenig. Please call for questions. Martir Schwartz MD GMN/MODL /[id number]
[2019-02-21] MEDS: HEPARIN SOD (PORCINE) 5,000 UNIT/ML VIAL SC SCH (20:00)
[2019-02-22] VITALS (7 sets, daily range): BP systolic 121–153; BP diastolic 58–72
[2019-02-22] MEDS: ALBUTEROL SULF 0.083% NEB SOLN 3 ML NEB NEB SCH ×6 (03:00→23:25)
[2019-02-22] MEDS: IPRATROPIUM BROMIDE 0.02% 2.5 ML NEB NEB SCH ×6 (03:00→23:25)
--- NOTE | 2019-02-22 06:53 | NUR ---
report given to day nurse. patient is resting comfortably in the bed. bed is in the lowest position and call light is within reach. will continue to monitor patient.
[2019-02-22] MEDS: LACTOBACILLUS ACIDOPHILUS CAPSULE PO SCH ×2 (08:30→17:19)
[2019-02-22] MEDS: PREDNISONE 20 MG TAB PO SCH (08:30)
[2019-02-22] MEDS: HEPARIN SOD (PORCINE) 5,000 UNIT/ML VIAL SC SCH ×2 (08:35→20:42)
[2019-02-22] MEDS: SODIUM CHLORIDE 0.45% 1,000 ML IV SCH (10:18)
--- NOTE | 2019-02-22 14:33 | Diagnostic Imaging Report ---
CT CHEST WITH CONTRAST HISTORY: rule out pneumonia, rule out pancreatic mass COMPARISON: None TECHNIQUE: CT scan of the chest WITH intravenous contrast, using standard protocol. Coronal and sagittal reformats are provided. IV CONTRAST: 100 cc of Isovue-370. RADIATION DOSE: Total DLP: 1380.84 mGy*cm total for both studies performed at this time. Dose modulation, iterative reconstruction, and/or weight based adjustment of the mA/kV was utilized to reduce the radiation dose to as low as reasonably achievable. COMPLICATIONS: None FINDINGS: Lines/tubes: None. Lungs and Airways: Low lung volumes result in bibasilar vascular crowding, accentuation of the pulmonary interstitial markings, central pulmonary vasculature, and the cardiac silhouette. Allowing for these limitations, the findings are as follows: Geographic regions of heterogeneous lung density, most likely reflects areas of air trapping. Mild bibasilar atelectasis, right greater than left. Diffuse bronchial wall thickening. Pleura: No effusion or pneumothorax. Heart and mediastinum: The thyroid gland is normal. The heart and pericardium are within normal limits. Abdomen: Limited evaluation of the upper abdomen. Refer to the CT of the abdomen performed at the same time. Lymph nodes: No pathologically enlarged lymph node identified. Vessels: Diffuse scattered atherosclerotic vascular calcifications. Bones: A nonspecific 1.1 cm sclerotic density within the manubrium. Severe degenerative changes of the left glenohumeral joint. Chronic healed fracture deformity of the proximal left humerus. Mild to moderate multilevel degenerative changes of the axial skeleton. Mild age-indeterminate anterior wedge compression deformity of the superior endplate of T5. Soft tissues: Unremarkable IMPRESSION: 1. Findings which can be seen in the setting of a nonspecific bronchitis, but no consolidative pneumonia. 2. Mosaic attenuation of the lungs likely reflects air trapping. 3. Mild bibasilar atelectasis. 4. A nonspecific 1.1 cm sclerotic density within the manubrium, in the setting of a known or suspected malignancy, recommend correlation with a nonemergent nuclear medicine bone scan to assess for osteoblastic activity. 5. Mild age-indeterminate anterior wedge compression deformity of T5. Signed by: Dr. Aidan Severino D.O., M.M.M. on 02/22/2019 2:30 PM
--- NOTE | 2019-02-22 14:39 | Diagnostic Imaging Report ---
EXAM: CT Abdomen WITHOUT and WITH contrast INDICATION: ^RULE OUT pancreatic mass ^[id number] ^[id number] COMPARISON: None. TECHNIQUE: Abdomen was scanned utilizing a multidetector helical scanner from the lung base to the iliac crests before and after administration of IV contrast. Coronal and sagittal reformations were obtained. Pancreas mass protocol was performed. Scan was performed pre- through the liver, arterial phase through the liver and venous phase through the abdomen. IV CONTRAST: 100 mL of Isovue 370 ORAL CONTRAST: None. COMPLICATIONS: None RADIATION DOSE: Total DLP: 1380.84 mGy*cm Estimated effective dose: (DLP x 0.015 x size factor) mSv CTDIvol has been reviewed. It is below the limits set by the Radiation Protocol Committee (RPC). FINDINGS: LINES and TUBES: None. LOWER THORAX: See dedicated chest CT report. HEPATOBILIARY: No hepatic mass. Few right hepatic lobe subcentimeter hypodensities are too small to characterize (series 3, images 89 and 90). There is also a subcentimeter left hepatic lobe hypodensity (series 3, image 90). Common bile duct dilatation up to 1 cm, likely due to reservoir effect. GALLBLADDER: Not visualized. SPLEEN: No splenomegaly. PANCREAS: Atrophic. No pancreatic ductal dilatation. 5.4 x 5.5 x 5.9 cm heterogeneously enhancing/multicystic lobulated pancreatic head mass. SMA: Patent SMV: Patent. Mass abuts less than 180 degree (series 3, image 109). Portal Vein [place]: Patent Celiac [place]: Patent Gastroduodenal Artery: Patent Splenic Artery: Patent Splenic Vein: Patent Hepatic artery cannot be evaluated due to incomplete arterial phase images. ADRENALS: No adrenal nodules KIDNEYS/URETERS: Kidneys enhance symmetrically. No hydronephrosis. No renal mass. Few bilateral subcentimeter hypodensities are too small to characterize. No stones. GI TRACT: Visualized bowel loops are unremarkable. No evidence of bowel obstruction. Colonic diverticula without evidence of diverticulitis in the visualized colon. Right subdiaphragmatic colonic interposition. Appendix is normal. LYMPH NODES: No lymphadenopathy. VESSELS: There is moderate atherosclerotic disease in the aorta and major arterial branches. PERITONEUM / RETROPERITONEUM: No free air or fluid. BONES: Generalized demineralization. Degenerative changes of the visualized thoracolumbar spine. SOFT TISSUES: Elevated right hemidiaphragm. Bilateral breast calcifications. IMPRESSION: 1. 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 Signed by: Dr. Polo Byers MD on 02/23/2019 1:19 AM
[2019-02-22] MEDS: AZITHROMYCIN 500MG/NS 250 ML 250 ML IV SCH (17:20)
[2019-02-22] MEDS: CEFTRIAXONE SOD 1 GM/NS 50 ML 50 ML IV SCH (17:20)
--- NOTE | 2019-02-22 19:00 | NUR ---
received report from day nurse. patient is resting comfortably in bed. bed is in lowest position and call valentine is within reach. will continue to monitor patient.
--- NOTE | 2019-02-22 22:48 | NUR ---
PULMONARY MEDICINE DATE OF ENCOUNTER: 02/22/2019 SUBJECTIVE: feels better expectorating phlegm CT chest noted, mosaic pattern in lungs. no luis felipe lung masses. CT with possible manubrial lesion, pancreatic lesion noted REVIEW OF SYSTEMS: no rash, no chest pain OBJECTIVE: VITAL SIGNS: vital signs noted and reviewed per the chart record. GENERAL: In no acute distress, alert and calm. HEENT: Normocephalic. Atraumatic. NECK: Supple. Throat midline. LUNGS: Bilateral air entry decreased bilaterally. No wheezes. CARDIOVASCULAR: S1, S2. No murmurs, rubs, or gallops. ABDOMEN: Soft, nontender. EXTREMITIES: No clubbing, no cyanosis. There is no edema. INTEGUMENT: No rash, no purpura. LABORATORY DATA: k 3.8, cr 1.03, wbc 5, hct 33, plt 325 IMPRESSION AND PLAN: 1. Abnormal chest radiography, possible fluid overload. 2. Previous echocardiogram was 60% LVEF, RVSP 20 estimated. BNP was 44. 3. Abnormal chest radiography, possible pneumonia vs URI. 4. Significantly elevated right hemidiaphragm. 5. 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 6. 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 7. Chronic allergies. 8. Mild gastroesophageal reflux disease. 9. Baseline debility and weakness. 10. Reported pancreatic stable mass in the past. 11. Hyperlipidemia. 12. Hypertension. 13. Lung nodule, small right 9 mm ground-glass opacity on previous CT. 14. Possible obstructive sleep apnea. Antibiotics. SNIFF test is reasonable. If the diaphragm is not diagnostic of paralysis, consider bronchoscopy to assess the atelectasis Steroids. Light bronchodilators Mobilize the patient with therapy. Supplement oxygen Thank you very much, Dr. Jason Fernandez and Dr. Koenig. Please call for questions.
[2019-02-23] VITALS (8 sets, daily range): BP systolic 140–163; BP diastolic 64–76
[2019-02-23] MEDS: IPRATROPIUM BROMIDE 0.02% 2.5 ML NEB NEB SCH ×6 (02:55→23:17)
[2019-02-23] MEDS: ALBUTEROL SULF 0.083% NEB SOLN 3 ML NEB NEB SCH ×6 (02:55→23:17)
--- NOTE | 2019-02-23 06:54 | NUR ---
RECEIVED PATIENT RESTING IN BED. NO ACUTE DISTRESS NOTED. DENIES PAIN OR DISCOMFORT. CALL LIGHT WITHIN REACH. BED IN THE LOWEST POSITION.
--- NOTE | 2019-02-23 07:07 | NUR ---
report given to day nurse and walking rounds complete. patient is resting comfortably in bed. bed is in lowest position and call valentine is within reach.
[2019-02-23] MEDS: LACTOBACILLUS ACIDOPHILUS CAPSULE PO SCH ×2 (08:37→17:06)
[2019-02-23] MEDS: PREDNISONE 20 MG TAB PO SCH (08:37)
[2019-02-23] MEDS: HEPARIN SOD (PORCINE) 5,000 UNIT/ML VIAL SC SCH ×2 (08:38→21:00)
--- NOTE | 2019-02-23 14:15 | NUR ---
At 1415 pt was on at rest on room SpO2 96%. At 1420 pt SpO2 was 94% on room air on exertion.
[2019-02-23] MEDS: SODIUM CHLORIDE 0.45% 1,000 ML IV SCH (17:05)
[2019-02-23] MEDS: CEFTRIAXONE SOD 1 GM/NS 50 ML 50 ML IV SCH (17:06)
--- NOTE | 2019-02-23 17:19 | NUR ---
RECEIVED ORDER FOR HOME O2 EVAL AND HOME HEALTH FOR SN EVAL AND TREAT. MET W THE PT AT THE BEDSIDE. DISCUSSED HOME HEALTH. PT STATES SHE HAS A PROVIDER M - F FROM . PT ASKED THAT CM CALL HER NIECE. CALL PLACED TO SLOANE MEDINA @ [phone]. NO ANSWER. LEFT VM W CONTACT INFO. WILL F/U
[2019-02-23] MEDS: AZITHROMYCIN 500MG/NS 250 ML 250 ML IV SCH (17:59)
--- NOTE | 2019-02-23 19:46 | NUR ---
REPORT GIVEN TO ONCOMING NURSE. WALKING ROUNDS DONE. PATIENT IS RESTING IN BED. NO ACUTE DISTRESS NOTED. CALL LIGHT WITHIN REACH. BED IN THE LOWEST POSITION.
--- NOTE | 2019-02-23 20:12 | NUR ---
RECEIVED PT IN BED AOX2 RESPIRATIONS ARE EVEN AND UNLABORED DENIES PAIN CALL LIGHT WITH IN REACH .TELE SHOWS SR .CALL LIGHT WITH IN REACH .CONTINUE TO MONITOR
[2019-02-24] VITALS (8 sets, daily range): BP systolic 130–165; BP diastolic 60–70
--- NOTE | 2019-02-24 00:48 | NUR ---
PULMONARY MEDICINE DATE OF ENCOUNTER: 02/23/2019 SUBJECTIVE: d/w niece in detail, d/w patient phlegm still being expectorated, mildly better. still limited 93% saturation RA fio2 REVIEW OF SYSTEMS: no rash, no chest pain OBJECTIVE: VITAL SIGNS: vital signs noted and reviewed per the chart record. GENERAL: no distress, alert and calm at rest. HEENT: Normocephalic. Atraumatic. NECK: Supple. Throat midline. LUNGS: Bilateral air entry decreased bilaterally. No wheezes. CARDIOVASCULAR: S1, S2. No murmurs, rubs, or gallops. ABDOMEN: Soft, nontender. EXTREMITIES: No clubbing, no cyanosis. There is no edema. INTEGUMENT: No rash, no purpura. LABORATORY DATA: no new updates IMPRESSION AND PLAN: 1. Abnormal chest radiography, possible fluid overload. 2. Previous echocardiogram was 60% LVEF, RVSP 20 estimated. BNP was 44. 3. Abnormal chest radiography, possible pneumonia vs URI. (CT chest limited due to excess mosaicism that is clinically more likely poor inspiration) --patient with borderline bronchiectasis 4. Significantly elevated right hemidiaphragm. 5. 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 6. 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 7. Chronic allergies. 8. Mild gastroesophageal reflux disease. 9. Baseline debility and weakness. 10. 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 Robust history of likelihood of benignity. 11. Hyperlipidemia. 12. Hypertension. 13. Lung nodule, small right 9 mm ground-glass opacity on previous CT. 14. Possible obstructive sleep apnea. Antibiotics. SNIFF test not available now. Future SNIFF ---If the diaphragm is not diagnostic of paralysis, consider bronchoscopy to assess the atelectasis. Bronchoscopy is less needed if the heavy consideration is that the pancreatic lesion is benign. Best for outpatient imaging repeat Steroids. Light bronchodilators Mobilize the patient with therapy. Supplement oxygen, home O2 evaluation. Thank you very much, Dr. Jason Fernandez and Dr. Koenig. Please call for questions.
[2019-02-24] MEDS: SODIUM CHLORIDE 0.45% 1,000 ML IV SCH ×2 (02:00→16:52)
[2019-02-24] MEDS: ALBUTEROL SULF 0.083% NEB SOLN 3 ML NEB NEB SCH ×6 (03:05→23:40)
[2019-02-24] MEDS: IPRATROPIUM BROMIDE 0.02% 2.5 ML NEB NEB SCH ×6 (03:05→23:40)
--- NOTE | 2019-02-24 05:26 | NUR ---
PT RESTED DURING THE NIGHT .NO ACUTE DISTRESS NOTED .CALL LIGHT WITH IN REACH .CONTINUE TO MONITOR
--- NOTE | 2019-02-24 07:14 | NUR ---
Received patient lying in bed with eyes open. Respiration even with O2 2L via NC. Call light in reach. Abbe pain at this time.
--- NOTE | 2019-02-24 07:17 | NUR ---
BED SIDE REPORT GIVEN TO THE ONCOMING NURSE
--- NOTE | 2019-02-24 09:03 | NUR ---
CALL TO PT'S NIECE, SLOANE HILL @ [phone]. STATES HER AUNT IS ALREADY ON SERVICE W [facility] @ [phone]. STATES SHE HAS A NURSE VISIT Q SATURDAY. DISCUSSED THE PT NOT MEETING FOR HOME O2. ENCOURAGED SLOANE TO CONTACT THE NURSE TO HAVE AN RT DO ASSESSMENT IN THE HOME WHEN PT EXPERIENCES SOB. VERBALIZED UNDERSTANDING.
[2019-02-24] MEDS: PREDNISONE 20 MG TAB PO SCH (09:07)
[2019-02-24] MEDS: LACTOBACILLUS ACIDOPHILUS CAPSULE PO SCH ×2 (09:08→16:46)
[2019-02-24] MEDS: HEPARIN SOD (PORCINE) 5,000 UNIT/ML VIAL SC SCH ×2 (09:20→20:49)
[2019-02-24] MEDS: CEFTRIAXONE SOD 1 GM/NS 50 ML 50 ML IV SCH (17:30)
[2019-02-24] MEDS: AZITHROMYCIN 500MG/NS 250 ML 250 ML IV SCH (17:56)
--- NOTE | 2019-02-24 19:00 | NUR ---
patient received awake, alert, sitting up in chair. no c/o pain noted. ivf continue to infuse without difficulty. pm assessment complete. patient instructed to call for assistance when needed.
--- NOTE | 2019-02-24 19:06 | NUR ---
Report given to shift production associate. Patient is lying in bed with eyes open. Respiration even and unlabored without SOB. Call light in reach.
[2019-02-25] VITALS: BP 128/60
--- NOTE | 2019-02-25 01:00 | NUR ---
patient appears to be resting quietly. no c/o pain noted at this time. ivf continue to infuse without difficulty.
--- NOTE | 2019-02-25 01:25 | NUR ---
PULMONARY MEDICINE DATE OF ENCOUNTER: 02/24/2019 SUBJECTIVE: wheezes still eating well BM 3 L / min oxygen REVIEW OF SYSTEMS: no rash, no chest pain OBJECTIVE: VITAL SIGNS: vital signs noted and reviewed per the chart record. GENERAL: no distress, alert and calm at rest. HEENT: Normocephalic. Atraumatic. NECK: Supple. Throat midline. LUNGS: Bilateral air entry decreased bilaterally. no resp distress CARDIOVASCULAR: S1, S2. No murmurs, rubs, or gallops. ABDOMEN: Soft, nontender. EXTREMITIES: No clubbing, no cyanosis. There is no edema. INTEGUMENT: No rash, no purpura. LABORATORY DATA: no new updates IMPRESSION AND PLAN: 1. Abnormal chest radiography, less likely fluid overload. 2. Previous echocardiogram was 60% LVEF, RVSP 20 estimated. BNP was 44. 3. Abnormal chest radiography, possible pneumonia vs URI. (CT chest limited due to excess mosaicism that is clinically more likely poor inspiration) --patient with borderline bronchiectasis 4. Significantly elevated right hemidiaphragm. 5. 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 6. 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 7. Chronic allergies. 8. Mild gastroesophageal reflux disease. 9. Baseline debility and weakness. 10. 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 Robust history of likelihood of benignity. 11. Hyperlipidemia. 12. Hypertension. 13. Possible obstructive sleep apnea/hypoventilation Antibiotics. SNIFF test not available now. Future SNIFF ---If the diaphragm is not diagnostic of paralysis, consider bronchoscopy to assess the atelectasis. Bronchoscopy is less needed if the heavy consideration is that the pancreatic lesion is benign. Best for outpatient imaging repeat Steroids wean slowly Light bronchodilators Mobilize the patient with therapy. Supplement oxygen CPT escalate/ expectorate Thank you very much, Dr. Jason Fernandez and Dr. Koenig. Please call for questions.
[2019-02-25] MEDS: IPRATROPIUM BROMIDE 0.02% 2.5 ML NEB NEB SCH ×3 (03:22→11:14)
[2019-02-25] MEDS: ALBUTEROL SULF 0.083% NEB SOLN 3 ML NEB NEB SCH ×3 (03:22→11:14)
[2019-02-25 04:00] VITALS: BP 110/89
[2019-02-25 07:46] VITALS: BP 161/70
--- NOTE | 2019-02-25 08:48 | Diagnostic Imaging Report ---
EXAMINATION: CHEST SINGLE (PORTABLE) INDICATION: Pneumonia COMPARISON: Chest CT of 02/21/2019 FINDINGS: LINES/TUBES:EKG leads overlie the chest. LUNGS:The lung volumes are low, particularly on the right where there is persistent elevation of the right hemidiaphragm. There is left basilar opacity silhouetting the left jasen diaphragm. Patchy opacities at the right lung base. PLEURA:No pleural effusion or pneumothorax. MEDIASTINUM:Cardiomediastinal silhouette is mildly enlarged. Atherosclerotic calcifications of the thoracic aorta. BONES/SOFT TISSUES:No acute osseous injury. ABDOMEN:No free air under the diaphragm. IMPRESSION: Low lung volumes. Patchy bibasilar opacities most likely represent subsegmental atelectasis. Persistent right hemidiaphragmatic elevation. Signed by: Kyle Soriano MD on 02/25/2019 8:44 AM
[2019-02-25] MEDS ORDERED: PREDNISONE 20 MG TAB PO SCH (09:00)
[2019-02-25] MEDS: LACTOBACILLUS ACIDOPHILUS CAPSULE PO SCH (09:18)
[2019-02-25 12:12] VITALS: BP 132/66
[2019-02-25] MEDS ORDERED: PREDNISONE10 MG PO (12:18)
--- NOTE | 2019-02-25 21:45 | NUR ---
PULMONARY MEDICINE DATE OF ENCOUNTER: 02/25/2019 SUBJECTIVE: 98% saturation RA fio2 2 L/min oxygen inpatient eating ok better REVIEW OF SYSTEMS: no rash, no chest pain OBJECTIVE: VITAL SIGNS: vital signs noted and reviewed per the chart record. GENERAL: no distress, alert and calm HEENT: Normocephalic. Atraumatic. NECK: Supple. Throat midline. LUNGS: Bilateral air entry decreased bilaterally. no resp distress CARDIOVASCULAR: S1, S2. No murmurs, rubs, or gallops. ABDOMEN: Soft, nontender. EXTREMITIES: No clubbing, no cyanosis. There is no edema. INTEGUMENT: No rash, no purpura. LABORATORY DATA: no new updates IMPRESSION AND PLAN: 1. Abnormal chest radiography, less likely fluid overload. 2. Previous echocardiogram was 60% LVEF, RVSP 20 estimated. BNP was 44. 3. Abnormal chest radiography, possible pneumonia vs URI. (CT chest limited due to excess mosaicism that is clinically more likely poor inspiration) --patient with borderline bronchiectasis 4. Significantly elevated right hemidiaphragm. 5. 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 6. 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 7. Chronic allergies. 8. Mild gastroesophageal reflux disease. 9. Baseline debility and weakness. 10. 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 Robust history of likelihood of benignity. 11. Hyperlipidemia. 12. Hypertension. 13. Possible obstructive sleep apnea/hypoventilation Antibiotics finish. SNIFF test not available now. Future SNIFF ---If the SNIFF test is not diagnostic of paralysis, consider bronchoscopy to assess the atelectasis. Bronchoscopy seems less needed if the heavy consideration is that the pancreatic lesion is benign. Best for outpatient imaging repeat Steroids wean slowly Light bronchodilators Mobilize the patient with therapy. Supplement oxygen CPT Discharge ok Thank you very much, Dr. Jason Fernandez and Dr. Koenig. Please call for questions.
--- NOTE | 2019-02-26 02:08 | Discharge Summary ---
PCP: Dr. Kishan Koenig. FINAL DISCHARGE DIAGNOSES: 1. Asthmatic bronchitis flare. 2. History of pancreatic mass. 3. Hypertension. 4. Hyperlipidemia. 5. Allergies. 6. Mild gastroesophageal reflux disease. 7. Right hemidiaphragmatic elevation. 8. Lung nodules, small right 9 mm ground-glass opacities on previous CT. 9. Possible obstructive sleep apnea. DIVISION LEADER: Dr. Martir Schwartz with Pulmonary. PROCEDURES: None. HISTORY: Per HPI. HOSPITAL COURSE: This is an 88-year-old female, who presented with increased cough and respiratory distress. She was started on Rocephin and azithromycin. She was started on prednisone daily and heparin subcu for DVT prophylaxis. She received DuoNeb q.4 hours and also as needed. She continued to improve. Pulmonary, Dr. Schwartz was consulted for abnormal chest radiography with possible pleural effusion. CT chest was done as well and abdomen, which showed nonspecific bronchitis with no pneumonia and 1.1 cm sclerotic density with manubrium, which will require a repeat workup outpatient. Today, she is breathing better. O2 sats are over 90% on room air. She would like to go home as she is feeling much better. We will discharge home on steroids to wean off, to follow up with her PCP and Pulmonary in 1 to 2 weeks. PHYSICAL EXAMINATION: VITAL SIGNS: Temperature 96.8, pulse 79, respirations 20, blood pressure 132/66, pulse ox is 98% on room air. GENERAL: No acute distress. NECK: Supple. HEENT: Atraumatic and normocephalic. LUNGS: Decreased breath sounds. CARDIOVASCULAR: Normal rate and rhythm. ABDOMEN: Soft and nontender. NEURO: Alert and oriented x3. MUSCULOSKELETAL: Active ROM. SKIN: No rash. Intact. CONDITION AT DISCHARGE: Improved and stable. DISCHARGE MEDICATIONS: See med rec list. FOLLOWUP: With PCP and pulmonary, Dr. Schwartz in 1 to 2 weeks. Total time of discharge is 33 minutes. Dictated by PIOTR Gilmore Jimmie Fernandez MD MY/MODL /[id number] cc: Kishan Koenig Seen and examined on 02/25/2019. Agree with the findings and plan as documented by PIOTR Markham. PIETROD
== END 2019-02-25 15:20 | disposition home or self-care (01) | DRG 202 ==
LOC: ER 14:18 → ERHOLD 17:55 → MED/SURG3 19:39
PROVIDERS: ADMIT Internal Medicine; ATTEND Internal Medicine
DX: J45.901 Unspecified asthma with (acute) exacerbation (principal); J18.9 Pneumonia, unspecified organism; J96.00 Acute respiratory failure, unspecified whether with hypoxia or hypercapnia; E87.2 Acidosis; N39.0 Urinary tract infection, site not specified; I10 Essential (primary) hypertension; E78.5 Hyperlipidemia, unspecified; K21.9 Gastro-esophageal reflux disease without esophagitis; R91.8 Other nonspecific abnormal finding of lung field; G47.33 Obstructive sleep apnea (adult) (pediatric); J98.6 Disorders of diaphragm
CPT/HCPCS: 36415; 71045; 71046; 71260; 74170; 80053; 80061; 81001; 82550; 82553; 83735; 83880; 84484; 85025; 85610; 85730; 87040; 87086; 87186; 90732; 93005; 94640; 97139; 99284; J0456; J0696; J1644; J2930; J7040; J7512

== ENCOUNTER → 2019-04-06 | Outpatient (CLI) | payer OTHER ==
--- NOTE | 2019-04-06 14:19 | Diagnostic Imaging Report ---
Fluoroscopy, 04/06/2019. CLINICAL HISTORY: Elevated diaphragm. FINDINGS: Fluoroscopically acquired images were acquired during inspiration, expiration, and during rapid inspiration. There is marked elevation of the right hemidiaphragm. Upon rapid inspiration, there is normal downward excursion of the left hemidiaphragm by approximately 2 costal interspaces. There is also simultaneous downward motion of the right hemidiaphragm, but by less than 1 interspace. Fluoroscopy time: 0.07. Fluoroscopy dose: 11 mGy (DARREN). Impression: Elevation of the right hemidiaphragm with decreased but synchronous right diaphragmatic motion. Signed by: Bright Abraham on 04/06/2019 2:16 PM
== END ==
LOC: DX 11:24
PROVIDERS: ATTEND Internal Medicine Critical Care Medicine
DX: R09.02 Hypoxemia (principal); R06.89 Other abnormalities of breathing; J42 Unspecified chronic bronchitis; Q79.1 Other congenital malformations of diaphragm; Z88.9 Allergy status to unspecified drugs, medicaments and biological substances; G47.33 Obstructive sleep apnea (adult) (pediatric); K21.9 Gastro-esophageal reflux disease without esophagitis

== ENCOUNTER → 2019-05-07 | Outpatient (CLI) | payer MEDICARE, OTHER ==
--- NOTE | 2019-05-07 12:15 | Diagnostic Imaging Report ---
Exam: Right hip 2 views History: Right hip pain Comparison: None. Findings: The bones are osteopenic. No acute, displaced fracture or dislocation. The femoral head projects appropriately over the acetabulum. There is moderate joint space narrowing and marginal osteophytosis along with subchondral sclerosis of the acetabular roof. Partially visualized sacroiliac joint is intact. Scattered phleboliths and probable injection granulomata along the partially visualized tibial soft tissues. Atherosclerotic vascular calcifications. Impression: No acute osseous abnormality. 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 Signed by: Dr. Emerson Dominguez M.D. on 05/07/2019 12:12 PM
== END ==
LOC: RAD 11:13
PROVIDERS: ATTEND Family Medicine
DX: M25.551 Pain in right hip (principal)